=== PATIENT | female | born 1940 | race Caucasian/White ===

== ENCOUNTER → 2018-06-08 | Outpatient (CLI) | payer MEDICARE, BC ==
[2018-06-08 15:51] LABS: HCT 43.6 % (34.0-46.0); HGB 14.3 gm/dL (11.4-16.0); MCH 30.5 pg (25.0-35.0); MCHC 32.7 g/dL (31.0-37.0); MCV 93.3 fL (80.0-100.0); Platelet Count 233 k/uL (150-450); RBC 4.67 m/uL (3.80-5.40); RDW 13.7 % (11.5-15.5); WBC 7.1 k/uL (3.8-10.6)
[2018-06-08 16:08] LABS: Potassium 4.4 mmol/L (3.5-5.1)
== END | disposition home or self-care (01) ==
LOC: LABPAT 15:08
PROVIDERS: ATTEND Internal Medicine Cardiovascular Disease
DX: Z01.812 Encounter for preprocedural laboratory examination (principal); I10 Essential (primary) hypertension; R94.39 Abnormal result of other cardiovascular function study
CPT/HCPCS: 36415; 80051; 82565; 84520; 85027

== ENCOUNTER → 2018-06-15 | Day surgery (SDC) | payer MEDICARE, BC ==
[2018-06-08 10:48] VITALS: BMI 24.7
[~2018-06-15] MED LIST: ALPRAZolam 0.25 MG TAB PO PRN; ALPRAZolam 0.5 MG TAB PO PRN; ASPIRIN 325 MG TAB PO STA; ATORVASTATIN 80 MG TAB PO STA; IOPAMIDOL-370 125ML BTL INJ ONE; LIDOCAINE 2% INJ 20 MG/ML SQ ONE; MIDAZOLAM 2 MG/2 ML VIAL IVP ONE; MIDAZOLAM 2 MG/2 ML VIAL ONE; NITROGLYCERIN SL TABS 0.4 MG TAB SUBLINGUAL PRN; RX INFO: IV CONTRAST WAS GIVEN 1 EACH MISC MISCELLANE PRN; SODIUM CHLORIDE 0.9% 1,000 ML IV SCH; SODIUM CHLORIDE 0.9% 1,000 ML in EMPTY BAG 1 BAG IV ONE
[2018-06-15 06:37] VITALS: PULSE 60; RESP 20; TEMP 98.1
--- NOTE | 2018-06-15 09:44 | CC ---
CARDIAC CATHETERIZATION REPORT Ness is a 78-year-old lady with history of coronary artery disease, status post prior angioplasty of right coronary artery, who had an episode of chest pain, underwent stress test that showed ischemia involving the inferior wall due to which she was advised to undergo cardiac catheterization. She sees Dr. Jacques, who is her primary radiagraph operator, who asked me to perform this procedure for him. Patient has been explained of risks, benefits and alternatives, understood and accepted. She has renal insufficiency with a creatinine of 1.3. Her contrast threshold is 120 mL. PROCEDURE NOTE: After obtaining informed consent, left heart catheterization and coronary angiogram were performed via the right femoral artery using standard Crystal catheters. Patient tolerated the procedure well without any obvious immediate complications. Patient received moderate conscious sedation and total sedation time was 15 minutes. FINDINGS: 1. HEMODYNAMICS: Left ventricular end-diastolic pressure is 12-14 mm. There is no significant gradient across the aortic valve. 2. LEFT VENTRICULOGRAM: Left ventriculogram is not performed. 3. ANGIOGRAPHIC DATA: 4. LEFT MAIN CORONARY ARTERY: Left main coronary artery appears calcified but is free of significant stenosis. Divides into left anterior descending coronary artery and circumflex coronary artery. LAD shows a mild atherosclerotic plaque in its proximal portion. LAD and its branches, circumflex coronary artery and its branches are free of significant stenosis. Right coronary artery is a large dominant vessel. The previously stented segment in the mid RCA appears patent. The ostial portion of the right coronary artery shows a 70% to 80% stenosis. CONCLUSION: 1. Ostial stenosis involving right coronary artery. 2. Renal insufficiency. PLAN: I reviewed angiographic data with Dr. Calvo, the on-call asset protection agent who will perform angioplasty of the ostium of the right coronary artery, but he is going to bring the patient back next week and do it so that we do not give her too much contrast and increase the risk of renal insufficiency on her. These issues have been discussed with the patient. She understands and is in agreement with the plan. The right coronary artery was engaged using a israel catheter and patient will continue current optimal medical therapy including aspirin, nitrates, Lipitor and Toprol-XL. Patient will be hydrated for the next 6 hours. Patient underwent an Angio-Seal for hemostasis. MMODL / IJN: [id number] /
[2018-06-15 16:34] VITALS: BP 145/64
== END | disposition home or self-care (01) ==
LOC: CATHCVL 06:03
PROVIDERS: ATTEND Internal Medicine Cardiovascular Disease
DX: I25.10 Atherosclerotic heart disease of native coronary artery without angina pectoris (principal); I10 Essential (primary) hypertension; N28.9 Disorder of kidney and ureter, unspecified; Z79.899 Other long term (current) drug therapy; Z95.5 Presence of coronary angioplasty implant and graft
CPT/HCPCS: 93458; C1760; C1894; C1769; J2001; J2250; Q9967

== ENCOUNTER 2018-06-19 07:39 | Day surgery (SDC) | payer MEDICARE, BC ==
[2018-06-16 08:42] VITALS: BMI 24.7
[~2018-06-19 07:39] MED LIST changes: -ALPRAZolam 0.25 MG TAB PO PRN; -ALPRAZolam 0.5 MG TAB PO PRN; +ASPIRIN 325 MG TAB PO ONE; -ASPIRIN 325 MG TAB PO STA; +ATORVASTATIN 80 MG TAB PO ONE; -ATORVASTATIN 80 MG TAB PO STA; -IOPAMIDOL-370 125ML BTL INJ ONE; -LIDOCAINE 2% INJ 20 MG/ML SQ ONE; -MIDAZOLAM 2 MG/2 ML VIAL IVP ONE; -MIDAZOLAM 2 MG/2 ML VIAL ONE; -NITROGLYCERIN SL TABS 0.4 MG TAB SUBLINGUAL PRN; -RX INFO: IV CONTRAST WAS GIVEN 1 EACH MISC MISCELLANE PRN; -SODIUM CHLORIDE 0.9% 1,000 ML IV SCH; -SODIUM CHLORIDE 0.9% 1,000 ML in EMPTY BAG 1 BAG IV ONE
[2018-06-19] MEDS: SODIUM CHLORIDE 0.9% 1,000 ML in EMPTY BAG 1 BAG IV ONE ×2 (08:25→08:26)
[2018-06-19 08:38] VITALS: RESP 18
[2018-06-19] MEDS ORDERED: MIDAZOLAM 2 MG/2 ML VIAL ONE (11:41)
[2018-06-19] MEDS ORDERED: LIDOCAINE 1% INJ 10MG/ML (20 ML MDV) ONE (11:41)
[2018-06-19] MEDS ORDERED: VERAPAMIL 2.5 MG/ML 2 ML AMP ONE (11:47)
[2018-06-19] MEDS ORDERED: HEPARIN SODIUM 1,000 UN/ML (10ML VL) ONE (12:02)
[2018-06-19] MEDS ORDERED: MIDAZOLAM 2 MG/2 ML VIAL IVP ONE ×2 (12:41→12:55)
[2018-06-19] MEDS ORDERED: LIDOCAINE 1% INJ 10MG/ML (20 ML MDV) SQ ONE (12:43)
[2018-06-19] MEDS ORDERED: BIVALIRUDIN BOLUS 250 MG/50 ML IV ONE (12:45)
[2018-06-19] MEDS ORDERED: VERAPAMIL SYRINGE (5 MG/10 ML) INTRAARTER ONE ×2 (12:46→13:23)
[2018-06-19] MEDS ORDERED: VERAPAMIL SYRINGE (5 MG/10 ML) IVP ONE (12:46)
[2018-06-19] MEDS ORDERED: BIVALIRUDIN 250 MG in SODIUM CHLORIDE 0.9% 50 ML IV ONE (12:47)
[2018-06-19] MEDS ORDERED: CLOPIDOGREL 75 MG TAB ONE (13:07)
[2018-06-19] MEDS ORDERED: CLOPIDOGREL 75 MG TAB PO ONE (13:10)
[2018-06-19] MEDS ORDERED: IOPAMIDOL-370 125ML BTL INJ ONE (13:23)
[2018-06-19] MEDS ORDERED: RX INFO: IV CONTRAST WAS GIVEN 1 EACH MISC MISCELLANE PRN (13:29)
[2018-06-19] MEDS ORDERED: ATROPINE SULFATE 0.1 MG/ML 10ML SYRINGE IV PRN (13:29)
[2018-06-19] MEDS ORDERED: ZOLPIDEM 5 MG TAB PO PRN (13:29)
[2018-06-19] MEDS ORDERED: NITROGLYCERIN SL TABS 0.4 MG TAB SUBLINGUAL PRN (13:29)
[2018-06-19] MEDS ORDERED: MAG HYDROX/AL HYDROX/SIMETH 30 ML CUP PO PRN (13:29)
[2018-06-19] MEDS ORDERED: SODIUM CHLORIDE 0.9% 1,000 ML IV SCH (13:30)
[2018-06-19] MEDS ORDERED: METOPROLOL SUCCINATE (ER) 25 MG TAB.ER.24H PO SCH (14:55)
--- NOTE | 2018-06-19 15:06 | LTR ---
DATE OF SERVICE: June 19, 2018. Dear Dr. Marrero: Ms. Ness Ozuna underwent successful stenting of the right coronary artery with good angiographic results and without any complication. Thank you for allowing us to participate in her in her care and please do not hesitate to call if you have any question or concerns. Sincerely, MMODL / IJN: [id number] /
--- NOTE | 2018-06-19 16:21 | PTCA ---
PERCUTANEOUSTRANS CORORONARY ANGIOGRAPHY DATE OF SERVICE: 06/19/2018 PERFORMING PHYSICIAN: Remington Calvo MD, field service technician PROCEDURE PERFORMED: Successful stenting of the ostial right coronary artery using a 3.0 x 15 mm Xience drug- eluting stent which was post dilated using a 3.5 mm noncompliant balloon with excellent angiographic results and reduction of stenosis from 99% to 0%. INDICATION: This is a pleasant 78-year-old female patient with known history of coronary artery disease and prior stenting of the RCA who sees Dr. Jacques in the office as an outpatient. She was experiencing chest discomfort. She underwent heart catheterization by Dr. Alcocer that revealed critical disease involving the ostial RCA. Because of that, she was brought today to undergo stenting of the RCA. APPROACH: Right radial artery. COMPLICATIONS: None. LEVEL OF SEDATION: Moderate sedation length 42 minutes. PROCEDURE DESCRIPTION: After obtaining informed consent, the patient was brought to the cardiac medical laboratory technicians. The right radial artery was cannulated using micropuncture technique. The micropuncture wire passed easily. Then I placed a 6-Kyrgyz sheath in the right radial artery. After that I gave the patient 2 mg of verapamil IA and anticoagulation with Angiomax was initiated IV. After that I attempted to engage the RCA using J3.5, JR4, Rip right, as well as multipurpose and also an AR1, and I was unable. Finally I was able to engage the right using using the XB right. The RCA was wired using a Whisper wire as well as a wire. After that I did balloon angioplasty using a 2.5 x 12 mm balloon before I deployed a 3.0 x 15 mm Xience RANCHO where the stent was positioned under fluoroscopic guidance and deployed under 14 atmospheres for 20 seconds. I post dilated the stent using a 3.5 mm NC balloon. The following angiogram showed excellent angiographic results without any perforation or dissection. POST-PROCEDURE MANAGEMENT: 1. Dual anti-platelet therapy. 2. Risk factor modifications. 3. Follow up with the patient. MMODL / IJN: [id number] /
[2018-06-19 22:07] VITALS: TEMP 97.8
[2018-06-20 05:28] VITALS: BP 119/70; PULSE 64
[2018-06-20] MEDS ORDERED: LEVOTHYROXINE 100 MCG TAB PO SCH (06:30)
--- NOTE | 2018-06-20 07:16 | DS ---
DISCHARGE SUMMARY ADMISSION DATE: 06/19/2018 DISCHARGE DATE: 06/20/2018 BRIEF HISTORY: This is a pleasant 78-year-old female patient with hypertension, dyslipidemia, and known coronary artery disease and prior stenting of the mid RCA, who was experiencing chest discomfort concerning for angina. She underwent heart catheterization and that revealed severe disease involving the ostial right coronary artery. The procedure was performed last week. Because of her chronic kidney disease and GFR of about 40, the patient was brought yesterday and underwent successful stenting of the ostial RCA using drug-eluting stent from a right radial approach. On follow up with her today, she is asymptomatic from the cardiovascular standpoint of view. The right radial access site is soft and nontender with a good pulse. The patient is going to be discharged home on dual antiplatelet therapy and statin and she is going to be followed up in the office in a week. MMYANI / YORDY: [id number] /
[2018-06-20 07:20] LABS: HGB 14.8 gm/dL (11.4-16.0); MCHC 32.8 g/dL (31.0-37.0); MCV 94.3 fL (80.0-100.0); Mean Platelet Volume 6.7; Platelet Count 230 k/uL (150-450); RBC 4.77 m/uL (3.80-5.40); RDW 13.5 % (11.5-15.5); WBC 6.1 k/uL (3.8-10.6)
[2018-06-20] MEDS ORDERED: ASPIRIN 81 MG PO SCH (09:00)
[2018-06-20] MEDS ORDERED: ATORVASTATIN 20 MG TAB PO SCH (09:00)
[2018-06-20] MEDS ORDERED: METOPROLOL SUCCINATE (ER) 25 MG TAB.ER.24H PO SCH ×2 (09:00)
[2018-06-20] MEDS ORDERED: ISOSORBIDE MONONITRATE ER 15 MG TAB PO SCH (12:00)
[2018-06-20] MEDS ORDERED: CALCIUM CARB-VIT D 500MG-200UN 1 EACH TAB PO SCH (12:00)
[2018-06-20] MEDS ORDERED: CLOPIDOGREL 75 MG TAB PO SCH (12:00)
[2018-06-20] MEDS ORDERED: MULTIVITAMINS, THERA 1 EACH TAB PO SCH (12:00)
== END 2018-06-20 09:11 ==
LOC: CATHCVL 07:39 → 6SEL 13:22 → CATHCVL 06-20 09:11
PROVIDERS: ATTEND Internal Medicine Interventional Cardiology
DX: I25.10 Atherosclerotic heart disease of native coronary artery without angina pectoris (principal); I12.9 Hypertensive chronic kidney disease with stage 1 through stage 4 chronic kidney disease, or unspecified chronic kidney disease; N18.9 Chronic kidney disease, unspecified; R94.39 Abnormal result of other cardiovascular function study; E78.5 Hyperlipidemia, unspecified; Z95.5 Presence of coronary angioplasty implant and graft; F17.210 Nicotine dependence, cigarettes, uncomplicated; Z79.82 Long term (current) use of aspirin; Z79.890 Hormone replacement therapy; Z79.899 Other long term (current) drug therapy
CPT/HCPCS: 82565; 85027; C9600; C1769 ×2; C1887 ×5; C1725 ×2; C1874; C1894; J2250; J2001; J0583; Q9967

== ENCOUNTER → 2018-10-02 | Outpatient (CLI) | payer MEDICARE, BC ==
[2018-10-02 17:14] LABS: Albumin 4.1 g/dL (3.80-4.90); Albumin/Globulin Ratio 2.05 (1.20-2.10); Anion Gap 3.2 mmol/L (4.00-12.00); Calcium 9.5 mg/dL (8.7-10.3); Carbon Dioxide 26.8 mmol/L (21.6-31.8); Potassium 4.2 mmol/L (3.5-5.5); Total Bilirubin 0.4 mg/dL (0.3-1.2); Total Protein 6.1 g/dL (6.2-8.2)
== END ==
LOC: LABWHC1 08:33
PROVIDERS: ATTEND Internal Medicine Clinical Cardiac Electrophysiology
DX: I25.10 Atherosclerotic heart disease of native coronary artery without angina pectoris (principal); I10 Essential (primary) hypertension; Z95.5 Presence of coronary angioplasty implant and graft
CPT/HCPCS: 36415; 80053; 80061

== ENCOUNTER 2019-09-23 09:18 | Observation (INO) | payer MEDICARE, BC ==
[2019-09-23] MEDS ORDERED: SODIUM CHLORIDE 0.9% 1,000 ML IV STA (09:46)
--- NOTE | 2019-09-23 09:49 | ED ---
General Adult HPI - General Chief complaint: Recheck/Abnormal Lab/Rx Stated complaint: High BP Time Seen by Provider: 09/23/19 09:31 Source: patient, RN notes reviewed Mode of arrival: ambulatory Limitations: no limitations - History of Present Illness Initial comments: Patient is a pleasant 79-year-old female presenting to the emergency department lightheadedness. Symptoms have been occurring over the past few days. Patient decided to have her blood pressure checked this morning and was found to be high. Patient does not normally have any blood pressure issues. Patient does admit to having mild burning in her chest yesterday as well as today. No isolated area of weakness or confusion. Patient does have history of burning in her chest previously associated with heart attack however was much more significant at that point. - Related Data Home Medications Medication Instructions Recorded Confirmed Aspirin 81 mg PO DAILY 06/08/18 09/23/19 Atorvastatin Calcium [Lipitor] 20 mg PO DAILY@0800 06/08/18 09/23/19 [place]/D3/Mag11/Zinc/Staffing Director/Reji/Bor 1 tab PO DAILY@1200 06/08/18 09/23/19 [Caltrate 600+D Plus Tablet] Levothyroxine Sodium [Synthroid] 100 mcg PO DAILY@0700 06/08/18 09/23/19 Multivit with Calcium,Iron,Min 1 tab PO DAILY@1200 06/08/18 09/23/19 [Women's Multivitamin] Allergies Allergy/AdvReac Type Severity Reaction Status Date / Time No Known Allergies Allergy Verified 09/23/19 11:13 Review of Systems ROS Statement: Those systems with pertinent positive or pertinent negative responses have been documented in the HPI. ROS Other: All systems not noted in ROS Statement are negative. Constitutional: Denies: fever Eyes: Denies: eye pain ENT: Denies: ear pain Respiratory: Denies: cough, dyspnea Cardiovascular: Reports: as per HPI Endocrine: Denies: fatigue Gastrointestinal: Denies: abdominal pain Genitourinary: Denies: dysuria Musculoskeletal: Denies: back pain Skin: Denies: rash Neurological: Denies: headache, weakness, confusion Past Medical History Past Medical History: Chest Pain / Angina, COPD, Hyperlipidemia, Hypertension, Myocardial Infarction ([place]), Renal Disease Additional Past Medical History / Comment(s): HEART CATH 06/15/18 - STATES PUNTURE SITE HAS NO SWELLING OR BLEEDING., RENAL INSUFFICIENCY., SEE CARDIOLOGY H & P. Last Myocardial Infarction Date:: 2004 History of Any Multi-Drug Resistant Organisms: None Reported Past Surgical History: Breast Surgery, Heart Catheterization With Stent Additional Past Surgical History / Comment(s): heart stent x1,lump removed left breast Past Anesthesia/Blood Transfusion Reactions: No Reported Reaction Additional Past Anesthesia/Blood Transfusion Reaction / Comment(s): no hx blood transfusion Date of Last Stent Placement:: 2004 Past Psychological History: Anxiety Smoking Status: Current every day smoker Past Alcohol Use History: Occasional Past Drug Use History: None Reported - Past Family History Sister(s) Family Medical History: Cancer Brother(s) Family Medical History: Cancer General Exam Limitations: no limitations General appearance: alert, in no apparent distress Head exam: Present: normocephalic Eye exam: Present: normal appearance, PERRL ENT exam: Present: normal oropharynx Neck exam: Present: normal inspection Respiratory exam: Present: normal lung sounds bilaterally Cardiovascular Exam: Present: regular rate, normal rhythm Expanded Peripheral pulses: 2+: Radial (R), Radial (L), Dorsalis Pedis (R), Dorsalis Pedis (L) GI/Abdominal exam: Present: soft. Absent: tenderness Extremities exam: Present: normal inspection. Absent: pedal edema, calf tenderness Neurological exam: Present: alert, oriented X3, CN II-XII intact. Absent: motor sensory deficit Psychiatric exam: Present: normal affect, normal mood Skin exam: Present: normal color Course Vital Signs 09/23/19 09/23/19 09:23 10:45 Temperature 98 F Pulse Rate 89 86 Respiratory 18 18 Rate Blood Pressure 196/90 138/61 O2 Sat by Pulse 97 98 Oximetry EKG Findings - EKG Comments: EKG Findings:: Normal sinus rhythm 67. AK 152. QRS 74. QT 390. QTC 412. Normal axis. Normal QRS. No acute ST change. Medical Decision Making - Medical Decision Making Patient reevaluated and resting comfortably in bed. Patient and family updated on results and plan. Case was discussed in detail with Dr. Powell, who will admit covering for Dr. Marrero - Lab Data Result diagrams: 09/23/19 09:50 09/23/19 09:50 Lab Results 09/23/19 09/23/19 09/23/19 Range/Units 09:50 09:50 09:50 WBC 7.0 (3.8-10.6) k/uL RBC 4.74 (3.80-5.40) m/uL Hgb 15.2 (11.4-16.0) gm/dL Hct 45.2 (34.0-46.0) % MCV 95.5 (80.0-100.0) fL MCH 32.1 (25.0-35.0) pg MCHC 33.6 (31.0-37.0) g/dL RDW 13.4 (11.5-15.5) % Plt Count 228 (150-450) k/uL Neutrophils % 72 % Lymphocytes % 18 % Monocytes % 5 % Eosinophils % 3 % Basophils % 1 % Neutrophils # 5.0 (1.3-7.7) k/uL Lymphocytes # 1.3 (1.0-4.8) k/uL Monocytes # 0.3 (0-1.0) k/uL Eosinophils # 0.2 (0-0.7) k/uL Basophils # 0.1 (0-0.2) k/uL PT 9.6 (9.0-12.0) sec INR 0.9 (<1.2) APTT 22.7 (22.0-30.0) sec Sodium 139 (137-145) mmol/L Potassium 4.5 (3.5-5.1) mmol/L Chloride 106 (98-107) mmol/L Carbon Dioxide 26 (22-30) mmol/L Anion Gap 7 mmol/L BUN 27 H (7-17) mg/dL Creatinine 1.34 H (0.52-1.04) mg/dL Est GFR (CKD-EPI)AfAm 44 (>60 ml/min/1.73 sqM) Est GFR (CKD-EPI)NonAf 38 (>60 ml/min/1.73 sqM) Glucose 118 H (74-99) mg/dL Calcium 9.5 (8.4-10.2) mg/dL Magnesium 2.1 (1.6-2.3) mg/dL Total Bilirubin 0.5 (0.2-1.3) mg/dL AST 30 (14-36) U/L ALT 30 (9-52) U/L Alkaline Phosphatase 97 (38-126) U/L Troponin I (0.000-0.034) ng/mL Total Protein 7.1 (6.3-8.2) g/dL Albumin 4.1 (3.5-5.0) g/dL 09/23/19 Range/Units 09:50 WBC (3.8-10.6) k/uL RBC (3.80-5.40) m/uL Hgb (11.4-16.0) gm/dL Hct (34.0-46.0) % MCV (80.0-100.0) fL MCH (25.0-35.0) pg MCHC (31.0-37.0) g/dL RDW (11.5-15.5) % Plt Count (150-450) k/uL Neutrophils % % Lymphocytes % % Monocytes % % Eosinophils % % Basophils % % Neutrophils # (1.3-7.7) k/uL Lymphocytes # (1.0-4.8) k/uL Monocytes # (0-1.0) k/uL Eosinophils # (0-0.7) k/uL Basophils # (0-0.2) k/uL PT (9.0-12.0) sec INR (<1.2) APTT (22.0-30.0) sec Sodium (137-145) mmol/L Potassium (3.5-5.1) mmol/L Chloride (98-107) mmol/L Carbon Dioxide (22-30) mmol/L Anion Gap mmol/L BUN (7-17) mg/dL Creatinine (0.52-1.04) mg/dL Est GFR (CKD-EPI)AfAm (>60 ml/min/1.73 sqM) Est GFR (CKD-EPI)NonAf (>60 ml/min/1.73 sqM) Glucose (74-99) mg/dL Calcium (8.4-10.2) mg/dL Magnesium (1.6-2.3) mg/dL Total Bilirubin (0.2-1.3) mg/dL AST (14-36) U/L ALT (9-52) U/L Alkaline Phosphatase (38-126) U/L Troponin I <0.012 (0.000-0.034) ng/mL Total Protein (6.3-8.2) g/dL Albumin (3.5-5.0) g/dL - Radiology Data Radiology results: image reviewed (Chest x-ray: Correlate for COPD.) Disposition Clinical Impression: Chest pain Disposition: ADMITTED IP TO THIS HOSP Is patient prescribed a controlled substance at d/c from ED?: No Referrals: Bessy Grimes MD [Primary Care Provider] - 1-2 days Decision Time: 11:23
[2019-09-23 10:07] LABS: Basophils # (A) 0.1 k/uL (0-0.2); Basophils % (A) 1 %; Eosinophils # (A) 0.2 k/uL (0-0.7); Eosinophils % (A) 3 %; HCT 45.2 % (34.0-46.0); HGB 15.2 gm/dL (11.4-16.0); Lymphocytes # (A) 1.3 k/uL (1.0-4.8); Lymphocytes % (A) 18 %; MCH 32.1 pg (25.0-35.0); MCHC 33.6 g/dL (31.0-37.0); MCV 95.5 fL (80.0-100.0); Mean Platelet Volume 6.7; Monocytes # (A) 0.3 k/uL (0-1.0); Monocytes % (A) 5 %; Neutrophils % (A) 72 %; Platelet Count 228 k/uL (150-450); RBC 4.74 m/uL (3.80-5.40); RDW 13.4 % (11.5-15.5)
[2019-09-23 10:19] LABS: Albumin 4.1 g/dL (3.5-5.0); Calcium 9.5 mg/dL (8.4-10.2); INR 0.9 (<1.2); Magnesium 2.1 mg/dL (1.6-2.3); Potassium 4.5 mmol/L (3.5-5.1); Total Bilirubin 0.5 mg/dL (0.2-1.3); Total Protein 7.1 g/dL (6.3-8.2)
[2019-09-23 10:20] LABS: Partial Thromboplastin Time 22.7 sec (22.0-30.0); Prothrombin Time 9.6 sec (9.0-12.0)
--- NOTE | 2019-09-23 10:36 | XR ---
EXAMINATION TYPE: XR chest 2V DATE OF EXAM: 09/23/2019 HISTORY: Chest Pain. REFERENCE: NONE. FINDINGS: The lungs are overinflated. The lungs are clear. Pleural space are clear. The heart is not enlarged. IMPRESSION: PLEASE CORRELATE FOR COPD.
[2019-09-23] MEDS ORDERED: NITROGLYCERIN SL TABS 0.4 MG TAB SUBLINGUAL PRN (11:23)
[2019-09-23] MEDS ORDERED: ASPIRIN 81 MG PO STA (11:23)
[2019-09-23] MEDS: NITROGLYCERIN OINT 1 INCH/GM PACKET TOPICAL SCH ×2 (12:05→17:09)
[2019-09-23 15:12] VITALS: BMI 25.3
--- NOTE | 2019-09-23 22:27 | P.HPIM ---
History of Present Illness H&P Date: 09/23/19 Chief Complaint: Chest pain Ms. Ozuna is a 79-year-old female with a past medical history of hypertension, coronary artery disease status post stenting, hyperlipidemia, CKD coming to the hospital with a chief complaint of chest discomfort. Patient states that it is not chest pain but chest heaviness that she feels. Patient has been having this for the past few days. And when she checked her blood pressure it was high. Patient also felt lightheaded when she had the symptoms and so came into the hospital for further evaluation. She states that for the past 2 to 3 weeks she has been having cough and has been taking antibiotics with some relief. She denies having any fevers chills or rigors. Patient denies having any lower extremity swelling. No orthopnea or PND. She denies having any syncopal episodes. No headaches, blurring of vision or speech abnormalities. She mentions that she felt the same way when she had heart attack in the past. Patient has history of smoking she smokes 1 pack a day. In the emergency room patient had a chest x-ray showing COPD and an EKG with normal sinus rhythm. She also had troponins checked, level is less than 0.012. Patient has CKD her creatinine is 1.34. Patient has been admitted for further evaluation and management. Review of Systems REVIEW OF SYSTEMS: PSYCH: no anxiety or depression NEURO:No c/o weakness of the extremties, No facial droop, No speech abnor malities. VASCULAR: Peripheral nervous system within the normal limits no edema HEMATOLOGIC: No history of easy bleeding and bruising . No recent infections . RESPIRATORY: + cough, No SOB. IMMUNE: No infections INTEGUMENT: no rashes OPHTHALMOLOGIC: No blurry vision and no eye discharge : No dysuria or hematuria PROOF CLERK: No bleeding PV CARDIAC: No chest pain paroxysmal nocturnal dyspnea MUSCULOSKELETAL : No Aches or pains in the joints or muscles. GI: No abdominal pain, Nausea or vomiting. No constipation or diarrhea. Past Medical History Past Medical History: Chest Pain / Angina, COPD, Hyperlipidemia, Hypertension, Myocardial Infarction ([place]), Renal Disease, Thyroid Disorder Additional Past Medical History / Comment(s): HEART CATH 06/15/18 - STATES PUNTURE SITE HAS NO SWELLING OR BLEEDING., RENAL INSUFFICIENCY., SEE CARDIOLOGY H & P. Last Myocardial Infarction Date:: 2004 History of Any Multi-Drug Resistant Organisms: None Reported Past Surgical History: Breast Surgery, Heart Catheterization With Stent Additional Past Surgical History / Comment(s): heart stent x1,lump removed left breast Past Anesthesia/Blood Transfusion Reactions: No Reported Reaction Additional Past Anesthesia/Blood Transfusion Reaction / Comment(s): no hx blood transfusion Date of Last Stent Placement:: 2004 Past Psychological History: Anxiety Smoking Status: Current some day smoker Past Alcohol Use History: Occasional Additional Past Alcohol Use History / Comment(s): started smoking as a teenager,1ppd Past Drug Use History: None Reported - Past Family History Sister(s) Family Medical History: Cancer Brother(s) Family Medical History: Cancer Medications and Allergies Home Medications Medication Instructions Recorded Confirmed Type Aspirin 81 mg PO DAILY 06/08/18 09/23/19 History Atorvastatin Calcium [Lipitor] 20 mg PO DAILY@0800 06/08/18 09/23/19 History [place]/D3/Mag11/Zinc/Greenskeeper/Reji/Bor 1 tab PO DAILY@1200 06/08/18 09/23/19 History [Caltrate 600+D Plus Tablet] Levothyroxine Sodium [Synthroid] 100 mcg PO DAILY@0700 06/08/18 09/23/19 History Multivit with Calcium,Iron,Min 1 tab PO DAILY@1200 06/08/18 09/23/19 History [Women's Multivitamin] Allergies Allergy/AdvReac Type Severity Reaction Status Date / Time No Known Allergies Allergy Verified 09/23/19 11:13 Physical Exam Vitals: Vital Signs Temp Pulse Pulse Resp BP BP Pulse Ox 09/23/19 16:00 69 16 96 09/23/19 13:15 97.1 F L 79 16 135/64 96 09/23/19 12:14 82 16 157/71 98 09/23/19 10:45 86 18 138/61 98 09/23/19 09:23 98 F 89 18 196/90 97 Intake and Output 09/23/19 09/23/19 09/23/19 06:59 14:59 22:59 Intake Total 240 Balance 240 Intake: Oral 240 Other: # Voids 2 # Bowel Movements 1 Weight 64.864 kg GEN. APPEARANCE: alert, in no apparent distress HEENT - no pallor, no icterus , No JVD. RESPIRATORY EXAM: Decreased BS in all lung feliz. Few scattered ronchi. CARDIOVASCULAR EXAM: regular rate, normal rhythm, normal heart sounds. GI/ABDOMINAL EXAM: soft, normal bowel sounds. no tenderness, guarding, rebound or rigidity EXTREMITIES EXAM: no pedal edema NEUROLOGICAL EXAM: alert, oriented X3, no focal deficit PSYCHIATRIC EXAM: normal affect, normal mood SKIN EXAM: warm, dry, intact, normal color. Results CBC & Chem 7: 09/23/19 09:50 09/23/19 09:50 Labs: Abnormal Lab Results - Last 24 Hours (Table) 09/23/19 Range/Units 09:50 BUN 27 H (7-17) mg/dL Creatinine 1.34 H (0.52-1.04) mg/dL Glucose 118 H (74-99) mg/dL Thrombosis Risk Factor Assmnt - Choose All That Apply Any of the Below Risk Factors Present?: Yes Each Factor Represents 1 point: Obesity (BMI >25) Other Risk Factors: Yes Each Risk Factor Represents 2 Points: Age 61-74 years Thrombosis Risk Factor Assessment Total Risk Factor Score: 3 Thrombosis Risk Factor Assessment Level: Moderate Risk Assessment and Plan Assessment: ASSESSMENT Chest pain COPD CKD stage 3 Hypertension Hyperlipidemia Coronary artery disease status post stenting Hypothyroidism Left breast lump removal History of anxiety Nicotine dependence PLAN: Patient complaining of chest heaviness and has significant history of coronary artery disease and currently smoking, admitted for ACS rule out. Will get serial troponins and EKGs. Cardiology has been consulted, she might need cardiac cath. Patient has been restarted on all her home medications. Further recommendations to follow depending on the progress of the patient.
[2019-09-23 23:10] LABS: Cholesterol 174 mg/dL (<200); HDL Cholesterol 47 mg/dL (40-60); LDL Cholesterol,Calculated 95 mg/dL (0-99); Triglycerides 158 mg/dL (<150)
[2019-09-24 05:10] LABS: Basophils % (A) 0 %; Eosinophils # (A) 0.1 k/uL (0-0.7); Eosinophils % (A) 2 %; HCT 39.2 % (34.0-46.0); HGB 13.5 gm/dL (11.4-16.0); Lymphocytes # (A) 1.6 k/uL (1.0-4.8); Lymphocytes % (A) 23 %; MCH 32.6 pg (25.0-35.0); MCHC 34.5 g/dL (31.0-37.0); MCV 94.5 fL (80.0-100.0); Mean Platelet Volume 6.1; Monocytes # (A) 0.3 k/uL (0-1.0); Monocytes % (A) 5 %; Neutrophils # (A) 4.7 k/uL (1.3-7.7); Neutrophils % (A) 69 %; Platelet Count 204 k/uL (150-450); RBC 4.15 m/uL (3.80-5.40); RDW 13.3 % (11.5-15.5); WBC 6.8 k/uL (3.8-10.6)
[2019-09-24 05:26] LABS: Calcium 8.5 mg/dL (8.4-10.2); Potassium 4.2 mmol/L (3.5-5.1)
[2019-09-24] MEDS ORDERED: LEVOTHYROXINE 100 MCG TAB PO SCH (06:30)
[2019-09-24] MEDS: NITROGLYCERIN OINT 1 INCH/GM PACKET TOPICAL SCH ×3 (06:34→13:16)
[2019-09-24] MEDS ORDERED: ATORVASTATIN 20 MG TAB PO SCH (08:00)
[2019-09-24] MEDS ORDERED: ASPIRIN 81 MG PO SCH (09:00)
[2019-09-24] MEDS ORDERED: ENOXAPARIN 40 MG/0.4 ML SYRINGE SQ SCH (09:00)
[2019-09-24] MEDS ORDERED: ASPIRIN 325 MG TAB PO SCH (09:00)
[2019-09-24 09:21] VITALS: RESP 20; TEMP 97.3
--- NOTE | 2019-09-24 13:12 | P.CRDCN ---
History of Present Illness Consult date: 09/24/19 Requesting physician: Ching Corbett Consult reason: chest pain Chief complaint: Lightheadedness, chest uneasiness History of present illness: This is a 79-year-old female who follows regularly with Dr. Jacques in the office. She has a known history of coronary artery disease with prior stent placement, her RCA was initially stented in 2004, in 2018 she had proximal RCA stenting performed by Dr. Jones. Patient also has history of hypertension, hyperlipidemia, intermittent dizzy spells with lightheadedness. As well as a nicotine dependence. She presents to the hospital on this occasion with symptoms primarily of lightheadedness, she states that she also had an uncomfortable feeling in her chest with no chest pain. She had several episodes over the weekend, initiated by lightheadedness with this similar feeling in the chest. She states that she would have something to eat and the symptoms seemed to subside. She is also recently had a upper respiratory infection and was treated as an outpatient with antibiotics, had a significant cough, and was uncomfortable in her rib area with coughing at that time. The time of my examination this morning she is free of any chest pain, and denies any dizziness. Patient also states that recently over the past couple of months she has had a stress test performed in the office which was reported to her to be normal. Blood pressure 140/80 with a heart rate in the 70s, 92% on room air. White blood cell count 6.8, hemoglobin 13.5, platelet count 204. D-dimer 0.41. Sodium 138, potassium 4.2, BUN 20, creatinine 1.1. Troponins are negative 3. Chest x-ray on presentation here showed COPD. Her EKG showed a normal sinus rhythm with no acute changes. Past Medical History Past Medical History: Chest Pain / Angina, COPD, Hyperlipidemia, Hypertension, Myocardial Infarction (IA), Renal Disease, Thyroid Disorder Additional Past Medical History / Comment(s): HEART CATH 06/15/18 - STATES PUNTURE SITE HAS NO SWELLING OR BLEEDING., RENAL INSUFFICIENCY., SEE CARDIOLOGY H & P. Last Myocardial Infarction Date:: 2004 History of Any Multi-Drug Resistant Organisms: None Reported Past Surgical History: Breast Surgery, Heart Catheterization With Stent Additional Past Surgical History / Comment(s): heart stent x1,lump removed left breast Past Anesthesia/Blood Transfusion Reactions: No Reported Reaction Additional Past Anesthesia/Blood Transfusion Reaction / Comment(s): no hx blood transfusion Date of Last Stent Placement:: 2004 Past Psychological History: Anxiety Smoking Status: Current some day smoker Past Alcohol Use History: Occasional Additional Past Alcohol Use History / Comment(s): started smoking as a teenager,1ppd Past Drug Use History: None Reported - Past Family History Sister(s) Family Medical History: Cancer Brother(s) Family Medical History: Cancer Medications and Allergies Home Medications Medication Instructions Recorded Confirmed Type Aspirin 81 mg PO DAILY 06/08/18 09/23/19 History Atorvastatin Calcium [Lipitor] 20 mg PO DAILY@0800 06/08/18 09/23/19 History [place]/D3/Mag11/Zinc/Primer Press Operator/Reji/Bor 1 tab PO DAILY@1200 06/08/18 09/23/19 History [Caltrate 600+D Plus Tablet] Levothyroxine Sodium [Synthroid] 100 mcg PO DAILY@0700 06/08/18 09/23/19 History Multivit with Calcium,Iron,Min 1 tab PO DAILY@1200 06/08/18 09/23/19 History [Women's Multivitamin] Allergies Allergy/AdvReac Type Severity Reaction Status Date / Time No Known Allergies Allergy Verified 09/23/19 11:13 Physical Exam Vitals: Vital Signs Temp Pulse Pulse Pulse Pulse Resp BP 09/24/19 08:00 97.3 F L 77 20 09/24/19 07:55 09/24/19 04:00 97.5 F L 71 16 138/66 09/24/19 00:00 77 16 130/67 09/23/19 20:00 97.9 F 72 85 74 74 16 144/65 09/23/19 16:00 69 16 09/23/19 13:15 97.1 F L 79 16 BP BP BP Pulse Ox 09/24/19 08:00 145/81 92 L 09/24/19 07:55 94 L 09/24/19 04:00 92 L 09/24/19 00:00 92 L 09/23/19 20:00 163/85 133/64 92 L 09/23/19 16:00 96 09/23/19 13:15 135/64 96 Intake and Output 09/23/19 09/24/19 09/24/19 22:59 06:59 14:59 Intake Total 480 240 Balance 480 240 Intake: Oral 480 240 Other: # Voids 0 1 3 # Bowel Movements 1 1 Weight 65.7 kg PHYSICAL EXAMINATION: GENERAL: 79-year-old female in no acute distress at HEENT: Head is atraumatic, normocephalic. Pupils equal, round. Sclera anicteric. Conjunctiva are clear. Mucous membranes of the mouth are moist. Neck is supple. There is no elevated jugular venous pressure. No carotid bruit is heard. HEART EXAMINATION: Heart S1, S2 normal. No murmur or gallop heard. CHEST EXAMINATION: Lungs reveal some fine wheezing on expiration. ABDOMEN: Soft, nontender. Bowel sounds are heard. No organomegaly noted. EXTREMITIES: 2+ peripheral pulses with no evidence of peripheral edema and no calf tenderness noted. NEUROLOGIC patient is awake, alert and oriented 3 . . Results 09/24/19 04:55 09/24/19 04:55 Cardiac Enzymes 09/23/19 09/23/19 Range/Units 15:58 21:21 Troponin I <0.012 <0.012 (0.000-0.034) ng/mL Lipids 09/23/19 Range/Units 09:50 Triglycerides 158 H (<150) mg/dL Cholesterol 174 (<200) mg/dL HDL Cholesterol 47 (40-60) mg/dL CBC 09/24/19 Range/Units 04:55 WBC 6.8 (3.8-10.6) k/uL RBC 4.15 (3.80-5.40) m/uL Hgb 13.5 (11.4-16.0) gm/dL Hct 39.2 (34.0-46.0) % Plt Count 204 (150-450) k/uL Comprehensive Metabolic Panel 09/24/19 Range/Units 04:55 Sodium 138 (137-145) mmol/L Potassium 4.2 (3.5-5.1) mmol/L Chloride 110 H (98-107) mmol/L Carbon Dioxide 26 (22-30) mmol/L BUN 20 H (7-17) mg/dL Creatinine 1.16 H (0.52-1.04) mg/dL Glucose 96 (74-99) mg/dL Calcium 8.5 (8.4-10.2) mg/dL Current Medications Generic Name Dose Route Start Last Admin Trade Name Freq PRN Reason Stop Dose Admin Aspirin 81 mg 09/24/19 09:00 09/24/19 08:30 Aspirin PO 81 mg DAILY DICK Administration Atorvastatin Calcium 20 mg 09/24/19 08:00 09/24/19 08:29 Lipitor PO 20 mg DAILY@0800 DICK Administration Enoxaparin Sodium 40 mg 09/24/19 09:00 09/24/19 08:30 Lovenox SQ 40 mg DAILY DICK Administration Levothyroxine Sodium 100 mcg 09/24/19 06:30 09/24/19 06:36 Synthroid PO 100 mcg DAILY@0630 DICK Administration Nitroglycerin 0.4 mg 09/23/19 11:23 Nitrostat SUBLINGUAL Q5M PRN Chest Pain Nitroglycerin 1 inch 09/23/19 12:00 09/24/19 06:36 Nitro-Bid Oint TOPICAL 1 inch Q6HR DICK Administration Intake and Output 09/23/19 09/24/19 09/24/19 22:59 06:59 14:59 Intake Total 480 240 Balance 480 240 Intake: Oral 480 240 Other: # Voids 0 1 3 # Bowel Movements 1 1 Weight 65.7 kg 09/24/19 04:55 09/24/19 04:55 EKG Interpretations (text) EKG shows a normal sinus rhythm with no acute changes. Assessment and Plan Plan: Assessment and plan #1 symptoms of lightheadedness with associated uneasiness in the chest. Troponins were negative 3, EKG showed normal sinus rhythm with no acute changes. Lightheadedness could be secondary to mild dehydration on presentation. #2 known history of coronary artery disease with prior RCA stenting in 2005 and most recently the proximal RCA in 2018 #3 nicotine dependence #4 hypertension #5 hyperlipidemia #6 mild renal insufficiency likely secondary to dehydration, creatinine 1.1 this morning. Plan Patient had a recent stress test performed in the office, if this is negative then from cardiology's perspective she should be able to be discharged home today. We will recommend a follow-up appointment with Dr. Jacques in the office post discharge. DNP note has been reviewed, I agree with a documented findings and plan of care. Patient was seen and examined.
[2019-09-24 13:41] VITALS: BP 169/73; PULSE 69
--- NOTE | 2019-09-24 14:59 | P.DS ---
Providers Date of admission: 09/23/19 11:23 Expected date of discharge: 09/24/19 Attending physician: Ching Corbett Consults: 09/23/19 11:23 Consult Physician Urgent Consulting Provider: Washington Langston Consult Reason/Comments: cp Do you want consulting provider notified?: Yes Primary care physician: [facility] Course: Ms. Ozuna is a 79-year-old female with a past medical history of hypertension, coronary artery disease status post stenting, hyperlipidemia, CKD coming to the hospital with a chief complaint of chest discomfort. Patient states that it is not chest pain but chest heaviness that she feels. Patient has been having this for the past few days. And when she checked her blood pressure it was high. Patient also felt lightheaded when she had the symptoms and so came into the hospital for further evaluation. She states that for the past 2 to 3 weeks she has been having cough and has been taking antibiotics with some relief. She denies having any fevers chills or rigors. Patient denies having any lower extremity swelling. No orthopnea or PND. She denies having any syncopal episodes. No headaches, blurring of vision or speech abnormalities. She mentions that she felt the same way when she had heart attack in the past. Patient has history of smoking she smokes 1 pack a day. In the emergency room patient had a chest x-ray showing COPD and an EKG with normal sinus rhythm. She also had troponins checked, level is less than 0.012. Patient has CKD her creatinine is 1.34. Patient has been admitted for further evaluation and management. Hospital course - patient had serial troponins and EKGs that are within normal limits. D-dimer 0.41. Cardiology has evaluated the patient. Patient had a stress test done recently couple of months back, but has been negative so she was cleared by cardiology to be discharged home today. No changes in medications were made. Patient is completely asymptomatic and back to her baseline is straight to go home. Patient is being discharged home in a stable condition. Vital Signs - 8 hr 09/24/19 09/24/19 09/24/19 07:55 08:00 12:00 Temperature 97.3 F L Pulse Rate [ 69 Left Sitting Pulse Oximetery ] Pulse Rate [ 77 Right Supine Radial] Respiratory 20 20 Rate Blood Pressure 145/81 169/73 [Right Arm Supine] O2 Sat by Pulse 94 L 92 L 95 Oximetry GEN. APPEARANCE: alert, in no apparent distress HEENT - no pallor, no icterus , No JVD. RESPIRATORY EXAM: Decreased BS in all lung feliz. Few scattered ronchi. CARDIOVASCULAR EXAM: regular rate, normal rhythm, normal heart sounds. GI/ABDOMINAL EXAM: soft, normal bowel sounds. no tenderness, guarding, rebound or rigidity EXTREMITIES EXAM: no pedal edema NEUROLOGICAL EXAM: alert, oriented X3, no focal deficit PSYCHIATRIC EXAM: normal affect, normal mood SKIN EXAM: warm, dry, intact, normal color. Laboratory Results - Last 24 Hours 09/23/19 09/23/19 09/23/19 09:50 15:58 21:21 WBC RBC Hgb Hct MCV MCH MCHC RDW Plt Count Neutrophils % Lymphocytes % Monocytes % Eosinophils % Basophils % Neutrophils # Lymphocytes # Monocytes # Eosinophils # Basophils # D-Dimer Sodium Potassium Chloride Carbon Dioxide Anion Gap BUN Creatinine Est GFR (CKD-EPI)AfAm Est GFR (CKD-EPI)NonAf Glucose Calcium Troponin I <0.012 <0.012 Triglycerides 158 H Cholesterol 174 LDL Cholesterol, Calc 95 HDL Cholesterol 47 09/23/19 09/24/19 09/24/19 23:07 04:55 04:55 WBC 6.8 RBC 4.15 Hgb 13.5 Hct 39.2 MCV 94.5 MCH 32.6 MCHC 34.5 RDW 13.3 Plt Count 204 Neutrophils % 69 Lymphocytes % 23 Monocytes % 5 Eosinophils % 2 Basophils % 0 Neutrophils # 4.7 Lymphocytes # 1.6 Monocytes # 0.3 Eosinophils # 0.1 Basophils # 0.0 D-Dimer 0.41 Sodium 138 Potassium 4.2 Chloride 110 H Carbon Dioxide 26 Anion Gap 2 BUN 20 H Creatinine 1.16 H Est GFR (CKD-EPI)AfAm 53 Est GFR (CKD-EPI)NonAf 46 Glucose 96 Calcium 8.5 Troponin I Triglycerides Cholesterol LDL Cholesterol, Calc HDL Cholesterol DISCHARGE DIAGNOSIS Chest pain COPD CKD stage 3 Hypertension Hyperlipidemia Coronary artery disease status post stenting Hypothyroidism Left breast lump removal History of anxiety Nicotine dependence PLAN: Patient is asymptomatic currently and a recent stress test was negative and ACS was ruled out, she is being discharged home in a stable condition. She is advised to follow up with her PCP within 5 days. Patient Condition at Discharge: Fair Plan - Discharge Summary Discharge Rx Participant: No New Discharge Prescriptions: Continue [place]/D3/Mag11/Zinc/Warehouse Puller/Reji/Bor [Caltrate 600+D Plus Tablet] 1 tab PO DAILY@1200 Levothyroxine Sodium [Synthroid] 100 mcg PO DAILY@0700 Aspirin 81 mg PO DAILY Atorvastatin Calcium [Lipitor] 20 mg PO DAILY@0800 Multivit with Calcium,Iron,Min [Women's Multivitamin] 1 tab PO DAILY@1200 Discharge Medication List Aspirin 81 mg PO DAILY 06/08/18 [History] Atorvastatin Calcium [Lipitor] 20 mg PO DAILY@0800 06/08/18 [History] [place]/D3/Mag11/Zinc/Warehouse Puller/Reji/Bor [Caltrate 600+D Plus Tablet] 1 tab PO DAILY@1200 06/08/18 [History] Levothyroxine Sodium [Synthroid] 100 mcg PO DAILY@0700 06/08/18 [History] Multivit with Calcium,Iron,Min [Women's Multivitamin] 1 tab PO DAILY@1200 06/08/18 [History] Follow up Appointment(s)/Referral(s): Tristen Retana MD [STAFF PHYSICIAN] - 10/18/19 11:00 am ( -previously scheduled appointment) Bessy Grimes MD [Primary Care Provider] - 09/27/19 11:30 am ( -please arrive 15mins early) Patient Instructions/Handouts: Chest Pain (DC), How to Stop Smoking (DC) Discharge Disposition: HOME SELF-CARE
== END 2019-09-24 17:22 | disposition home or self-care (01) ==
LOC: EC 09:18 → 3SCARD 11:23
PROVIDERS: ADMIT Internal Medicine; ATTEND Internal Medicine
DX: R07.89 Other chest pain (principal); R42 Dizziness and giddiness; E86.0 Dehydration; I25.2 Old myocardial infarction; I12.9 Hypertensive chronic kidney disease with stage 1 through stage 4 chronic kidney disease, or unspecified chronic kidney disease; N18.3 Chronic kidney disease, stage 3 (moderate); J44.9 Chronic obstructive pulmonary disease, unspecified; I25.10 Atherosclerotic heart disease of native coronary artery without angina pectoris; F17.210 Nicotine dependence, cigarettes, uncomplicated; E78.5 Hyperlipidemia, unspecified; N28.9 Disorder of kidney and ureter, unspecified; F41.9 Anxiety disorder, unspecified; E66.9 Obesity, unspecified; Z68.25 Body mass index [BMI] 25.0-25.9, adult; E03.9 Hypothyroidism, unspecified; Z79.82 Long term (current) use of aspirin; Z79.899 Other long term (current) drug therapy; Z79.890 Hormone replacement therapy; Z95.5 Presence of coronary angioplasty implant and graft; Z80.9 Family history of malignant neoplasm, unspecified
CPT/HCPCS: 96361 ×3; 96372; 93005 ×2; 96360; 99284; 36415; 94760; 85379; 80061; 80053; 80048; 83735; 84484; 85025 ×2; 85610; 85730; 71046; G0378 ×2; J1650

== ENCOUNTER 2025-03-19 11:35 | Emergency (ER) | payer MEDICARE, BC ==
[2025-03-19 11:42] VITALS: RESP 18; TEMP 98.4
[2025-03-19] MEDS: LACTATED RINGERS 1,000 ML IV ONE (12:57)
[2025-03-19] MEDS: ONDANSETRON 4 MG/2 ML VIAL IVP STA (12:58)
--- NOTE | 2025-03-19 12:59 | ED ---
General Adult HPI - General Chief complaint: Nausea/Vomiting/Diarrhea Stated complaint: Weakness Time Seen by Provider: 03/19/25 12:00 Source: patient, RN notes reviewed, old records reviewed Mode of arrival: ambulatory Limitations: no limitations - History of Present Illness Initial comments: Patient is an 85-year-old female presents emergency department complaining of nausea with 1 episode of vomiting today. Has a history of cervical spine stenosis, and has noticed progressively for the last weeks to months she has had decreased oral intake. Unknown if this is related to more of a upset stomach from her chronic medications but she is not drinking or eating as much as she used to. Endorses occasional generalized weakness. Denies any fevers or chills. Denies chest pain, abdominal pain, nausea, vomiting. States she feels fine but has noticed decreased oral intake. Unknown if it is secondary to difficulty with swallowing or just no appetite. Presents for further evaluation at this time.Patient apparently also has an possibly an aspiration event as she had a productive cough yesterday and this morning. - Related Data Home Medications Medication Instructions Recorded Confirmed Aspirin 81 mg PO DAILY 06/08/18 09/23/19 Atorvastatin Calcium [Lipitor] 20 mg PO DAILY@0800 06/08/18 09/23/19 [place]/D3/Mag11/Zinc/Aggregate Conveyor Operator/Reji/Bor 1 tab PO DAILY@1200 06/08/18 09/23/19 [Caltrate 600+D Plus Tablet] Levothyroxine Sodium [Synthroid] 100 mcg PO DAILY@0700 06/08/18 09/23/19 Multivit with Calcium,Iron,Min 1 tab PO DAILY@1200 06/08/18 09/23/19 [Women's Multivitamin] Previous Rx's Medication Instructions Recorded Azithromycin [Zithromax] 250 mg PO DAILY 4 Days #4 tab 03/19/25 Allergies Allergy/AdvReac Type Severity Reaction Status Date / Time No Known Allergies Allergy Verified 03/19/25 11:42 Review of Systems ROS Statement: Those systems with pertinent positive or pertinent negative responses have been documented in the HPI. Review of Systems: CONST: Denies fever EYES: Denies blurry vision ENT: Denies nasal congestion C/V: Denies Chest pain RESP: Denies shortness of breath GI: Endorses nausea and vomiting : Denies dysuria SKIN: Denies rash. MSK: Denies joint pain. NEURO: Endorses weakness ROS Other: All systems not noted in ROS Statement are negative. Past Medical History Past Medical History: Chest Pain / Angina, COPD, Hyperlipidemia, Hypertension, Myocardial Infarction (CT), Renal Disease, Thyroid Disorder Additional Past Medical History / Comment(s): HEART CATH 06/15/18 - STATES PUNTURE SITE HAS NO SWELLING OR BLEEDING., RENAL INSUFFICIENCY., SEE CARDIOLOGY H & P. Last Myocardial Infarction Date:: 2004 History of Any Multi-Drug Resistant Organisms: None Reported Past Surgical History: Breast Surgery, Heart Catheterization With Stent Additional Past Surgical History / Comment(s): heart stent x1,lump removed left breast Past Anesthesia/Blood Transfusion Reactions: No Reported Reaction Additional Past Anesthesia/Blood Transfusion Reaction / Comment(s): no hx blood transfusion Date of Last Stent Placement:: 2004 Past Psychological History: Anxiety Past Alcohol Use History: Occasional Past Drug Use History: None Reported - Past Family History Sister(s) Family Medical History: Cancer Brother(s) Family Medical History: Cancer General Exam - General Exam Comments Initial Comments: General: Appears in no acute distress. HEAD: Normal with no signs of head trauma. EYES: PERRLA, EOMI, conjunctiva normal, no discharge. ENT: Hearing grossly intact, normal oropharynx. Dry mucous membranes. Appears clinically dehydrated. RESPIRATORY: Clear breath sounds bilaterally. No wheezes, rales, or rhonchi. C/V: Regular rate and rhythm. S1 and S2 auscultated, no edema, peripheral pulses 2+ and intact throughout ABD: Abd is soft, nontender, nondistended EXT: Normal range of motion, no obvious deformity SKIN: No rashes or lesions observed on exposed skin. NEURO: Alert and oriented x 4. No obvious focal deficits. Limitations: no limitations Course Vital Signs 03/19/25 03/19/25 11:39 14:10 Temperature 98.4 F Pulse Rate 88 66 Respiratory 18 18 Rate Blood Pressure 138/64 124/64 O2 Sat by Pulse 95 96 Oximetry Medical Decision Making - Medical Decision Making Was pt. sent in by a medical professional or institution (, PA, ACCOUNT COORDINATOR, urgent care, hospital, or usp...) When possible be specific @ -No Did you speak to anyone other than the patient for history (EMS, parent, family, police, friend...)? What history was obtained from this source @ -Discussed with daughter who assisted with the PMH Did you review nursing and triage notes (agree or disagree)? Why? @ -I reviewed and agree with nursing and triage notes Were old charts reviewed (outside hosp., previous admission, EMS record, old EKG, old radiological studies, urgent care reports/EKG's, usp records)? Report findings @ -No old charts were reviewed Differential Diagnosis (chest pain, altered mental status, abdominal pain women, abdominal pain men, vaginal bleeding, weakness, fever, dyspnea, syncope, headache, dizziness, GI bleed, back pain, seizure, CVA, palpatations, mental health, musculoskeletal)? @ -Dehydration, electrolyte abnormality, decreased appetite, infection. This list is not all inclusive. EKG interpreted by me (3pts min.). @ -As above X-rays interpreted by me (1pt min.). @ -Chest x-ray reveals possible pneumonia which does fit as patient has had an episode of aspiration and did have some productive cough this morning. CT interpreted by me (1pt min.). @ -None done U/S interpreted by me (1pt. min.). @ -None done What testing was considered but not performed or refused? (CT, X-rays, U/S, labs)? Why? @ -None What meds were considered but not given or refused? Why? @ -None Did you discuss the management of the patient with other professionals (professionals i.e. , PA, ACCOUNT COORDINATOR, lab, RT, psych nurse, child welfare social worker, mobile ui/ux designer, teacher, marketing and communications officer, director of casework department)? Give summary @ -No Was smoking cessation discussed for >3mins.? @ -No Was critical care preformed (if so, how long)? @ -No Were there social determinants of health that impacted care today? How? (Homelessness, low income, unemployed, alcoholism, drug addiction, transportation, low edu. Level, literacy, decrease access to med. care, long term, rehab)? @ -No Was there de-escalation of care discussed even if they declined (Discuss DNR or withdrawal of care, Hospice)? DNR status @ -No What co-morbidities impacted this encounter? (DM, HTN, Smoking, COPD, CAD, Cancer, CVA, ARF, Chemo, Hep., AIDS, mental health diagnosis, sleep apnea, morbid obesity)? @ -None Was patient admitted / discharged? Hospital course, mention meds given and route, prescriptions, significant lab abnormalities, going to OR and other pertinent info. @ -Patient presents with decreased appetite as well as decreased oral intake ongoing for weeks. Could be related to medications. Clinically appears mildly dehydrated. She will receive IV fluids, Zofran and we will obtain basic labs as well as chest x-ray and EKG. She was in agreement this plan. Vitals are within acceptable limits. Does believe she may have had an aspiration event yesterday or this morning resulting in a mildly productive cough. Laboratory studies are all within acceptable limits except for mild leukocytosis of 13 however hemoglobin is also elevated I do suspect this is likely secondary to mild dehydration. Electrolytes are within normal limits. Thyroid function within normal limits. Urinalysis unremarkable. Chest x-ray shows possible pneumonia on the left. This is likely the aspiration event she discussed. EKG unremarkable. On reevaluation, patient resting comfortably. We did discuss her workup. She will attempt to decrease her dosing of gabapentin at home and I will place her on azithromycin at this time. She was in agreement this plan. Close follow-up with Dr. Grimes. She may require swallow studies. Strict return precautions discussed. Patient's daughter and patient were in agreement this plan. I will provide the patient with a prescription for azithromycin. I instructed the patient to follow up with their PCP in the next 1-3 days.. I explained that the patient should return to the emergency department if they experience any worsening symptoms. Strict return precautions were discussed with the patient. The patient expressed understanding of these instructions. I answered all questions that the patient had. The patient was discharged home in good con dition with their prescriptions and follow up information. Undiagnosed new problem with uncertain prognosis? @ -No Drug Therapy requiring intensive monitoring for toxicity (Heparin, Nitro, Insulin, Cardizem)? @ -No Were any procedures done? @ -No Diagnosis/symptom? @ -Pneumonia, dehydration Acute, or Chronic, or Acute on Chronic? @ -Acute Uncomplicated (without systemic symptoms) or Complicated (systemic symptoms)? @ -Uncomplicated Side effects of treatment? @ -No Exacerbation, Progression, or Severe Exacerbation? @ -No Poses a threat to life or bodily function? How? (Chest pain, USA, CT, pneumonia, PE, COPD, DKA, ARF, appy, cholecystitis, CVA, Diverticulitis, Homicidal, Suicidal, threat to staff... and all critical care pts) @ -Unlikely at this time - Lab Data Result diagrams: 03/19/25 12:53 03/19/25 12:53 Lab Results 03/19/25 03/19/25 03/19/25 Range/Units 12:53 12:53 12:53 WBC 13.77 H (4.50-10.00) 10*3/uL RBC 4.70 (4.10-5.20) 10*6/uL Hgb 15.2 H (12.0-15.0) g/dL Hct 44.1 (37.2-46.3) % MCV 93.8 (80.0-97.0) fL MCH 32.3 H (27.0-32.0) pg MCHC 34.5 (32.0-37.0) g/dL Plt Count 300 (140-440) 10*3/uL MPV 8.8 L (9.5-12.2) fL Immature Gran % (Auto) 0.4 % Neutrophils % 83.1 % Lymphocytes % 9.7 % Monocytes % 6.5 % Eosinophils % 0.1 % Basophils % 0.2 % Immature Gran # 0.06 H (0.00-0.04) 10*3/uL Neutrophils # 11.44 H (1.80-7.70) 10*3/uL Lymphocytes # 1.33 (0.90-5.00) 10*3/uL Monocytes # 0.90 (0.20-1.00) 10*3/uL Eosinophils # 0.01 L (0.04-0.35) 10*3/uL Basophils # 0.03 (0.00-0.10) 10*3/uL PT 10.2 (10.0-12.5) sec INR 0.9 (<1.2) APTT 20.1 L (22.0-30.0) sec Sodium (137-145) mmol/L Potassium (3.5-5.1) mmol/L Chloride (98-107) mmol/L Carbon Dioxide (22-30) mmol/L Anion Gap mmol/L BUN (7-17) mg/dL Creatinine (0.52-1.04) mg/dL Est GFR (CKD-EPI)AfAm (>60 ml/min/1.73 sqM) Est GFR (CKD-EPI)NonAf (>60 ml/min/1.73 sqM) Glucose (74-99) mg/dL Plasma Lactic Acid Jeff (0.7-2.0) mmol/L Calcium (8.4-10.2) mg/dL Magnesium (1.6-2.3) mg/dL Total Bilirubin (0.2-1.3) mg/dL AST (14-36) U/L ALT (4-34) U/L Alkaline Phosphatase (38-126) U/L Total Protein (6.3-8.2) g/dL Albumin (3.5-5.0) g/dL TSH (0.465-4.680) mIU/L Urine Color Light Yellow Urine Appearance Clear (Clear) Urine pH 5.5 (5.0-8.0) Ur Specific Alloy 1.021 (1.001-1.035) Urine Protein Negative (Negative) Urine Glucose (UA) Negative (Negative) Urine Ketones 1+ H (Negative) Urine Blood Trace H (Negative) Urine Nitrite Negative (Negative) Urine Bilirubin Negative (Negative) Urine Urobilinogen <2.0 (<2.0) mg/dL Ur Leukocyte Esterase Negative (Negative) Urine RBC 1 (0-5) /hpf Urine WBC 2 (0-5) /hpf Ur Squamous Epith Cells 1 (0-4) /hpf Hyaline Casts 3 H (0-2) /lpf Urine Mucus Rare H (None) /hpf 03/19/25 03/19/25 Range/Units 12:53 12:53 WBC (4.50-10.00) 10*3/uL RBC (4.10-5.20) 10*6/uL Hgb (12.0-15.0) g/dL Hct (37.2-46.3) % MCV (80.0-97.0) fL MCH (27.0-32.0) pg MCHC (32.0-37.0) g/dL Plt Count (140-440) 10*3/uL MPV (9.5-12.2) fL Immature Gran % (Auto) % Neutrophils % % Lymphocytes % % Monocytes % % Eosinophils % % Basophils % % Immature Gran # (0.00-0.04) 10*3/uL Neutrophils # (1.80-7.70) 10*3/uL Lymphocytes # (0.90-5.00) 10*3/uL Monocytes # (0.20-1.00) 10*3/uL Eosinophils # (0.04-0.35) 10*3/uL Basophils # (0.00-0.10) 10*3/uL PT (10.0-12.5) sec INR (<1.2) APTT (22.0-30.0) sec Sodium 134 L (137-145) mmol/L Potassium 4.8 (3.5-5.1) mmol/L Chloride 103 (98-107) mmol/L Carbon Dioxide 23 (22-30) mmol/L Anion Gap 8 mmol/L BUN 26 H (7-17) mg/dL Creatinine 1.03 (0.52-1.04) mg/dL Est GFR (CKD-EPI)AfAm 58 (>60 ml/min/1.73 sqM) Est GFR (CKD-EPI)NonAf 50 (>60 ml/min/1.73 sqM) Glucose 96 (74-99) mg/dL Plasma Lactic Acid Jeff 1.2 (0.7-2.0) mmol/L Calcium 10.0 (8.4-10.2) mg/dL Magnesium 2.1 (1.6-2.3) mg/dL Total Bilirubin 0.8 (0.2-1.3) mg/dL AST 27 (14-36) U/L ALT 16 (4-34) U/L Alkaline Phosphatase 73 (38-126) U/L Total Protein 6.9 (6.3-8.2) g/dL Albumin 4.1 (3.5-5.0) g/dL TSH 0.647 (0.465-4.680) mIU/L Urine Color Urine Appearance (Clear) Urine pH (5.0-8.0) Ur Specific Alloy (1.001-1.035) Urine Protein (Negative) Urine Glucose (UA) (Negative) Urine Ketones (Negative) Urine Blood (Negative) Urine Nitrite (Negative) Urine Bilirubin (Negative) Urine Urobilinogen (<2.0) mg/dL Ur Leukocyte Esterase (Negative) Urine RBC (0-5) /hpf Urine WBC (0-5) /hpf Ur Squamous Epith Cells (0-4) /hpf Hyaline Casts (0-2) /lpf Urine Mucus (None) /hpf - EKG Data -: EKG Interpreted by Me EKG Comments: 12-lead Electrocardiogram Interpretation Note EKG was reviewed and interpreted by myself. 12-lead ECG performed at 1234 is interpreted by me as revealing normal sinus rhythm at a rate of 71 beats per minute. [place] is normal. DE interval is 156 ms, QRS duration is 82 ms, QTc is currently 93 ms.. There were no ST or T wave abnormalities to suggest my ocardial ischemia or injury. R wave progression across the precordium was satisfactory. By my interpretation this EKG is non-diagnostic for acute ischemia. Disposition Clinical Impression: Dehydration, Pneumonia Disposition: HOME SELF-CARE Condition: Good Instructions (If sedation given, give patient instructions): Dehydration (ED), Community Acquired Pneumonia (ED) Prescriptions: Azithromycin [Zithromax] 250 mg PO DAILY 4 Days #4 tab Is patient prescribed a controlled substance at d/c from ED?: No Referrals: Bessy Grimes MD [Primary Care Provider] - 1-2 days Time of Disposition: 14:40
[2025-03-19 13:05] LABS: Basophils # (A) 0.03 10*3/uL (0.00-0.10); Basophils % (A) 0.2 %; Eosinophils # (A) 0.01 10*3/uL (0.04-0.35); Eosinophils % (A) 0.1 %; HCT 44.1 % (37.2-46.3); HGB 15.2 g/dL (12.0-15.0); Lymphocytes # (A) 1.33 10*3/uL (0.90-5.00); Lymphocytes % (A) 9.7 %; MCH 32.3 pg (27.0-32.0); MCHC 34.5 g/dL (32.0-37.0); MCV 93.8 fL (80.0-97.0); Mean Platelet Volume 8.8 fL (9.5-12.2); Monocytes % (A) 6.5 %; Neutrophils # (A) 11.44 10*3/uL (1.80-7.70); Neutrophils % (A) 83.1 %; Platelet Count 300 10*3/uL (140-440); RDW 14.5 % (11.5-14.5); WBC 13.77 10*3/uL (4.50-10.00)
[2025-03-19 13:09] LABS: Appearance,Urine Clear (Clear); Bilirubin,Urine Negative (Negative); Blood,Urine Trace (Negative); Color,Urine Light Yellow; Glucose,Urine (UA) Negative (Negative); Hyaline Casts,Urine 3 /lpf (0-2); Ketones,Urine 1+ (Negative); Leukocyte Esterase,Urine Negative (Negative); Mucus,Urine Rare /hpf; Nitrite,Urine Negative (Negative); PH, Urine 5.5 (5.0-8.0); Protein,Urine Negative (Negative); RBC,Urine 1 /hpf (0-5); Specific Gravity,Urine 1.021 (1.001-1.035); Squamous Epithelial Cell,Urine 1 /hpf (0-4); Urobilinogen,Urine <2.0 mg/dL (<2.0); WBC,Urine 2 /hpf (0-5)
[2025-03-19 13:21] LABS: INR 0.9 (<1.2); Partial Thromboplastin Time 20.1 sec (22.0-30.0); Prothrombin Time 10.2 sec (10.0-12.5)
[2025-03-19 13:22] LABS: ALT 16 U/L (4-34); African American GFR (CKD) 58 (>60 ml/min/1.73 sqM); Albumin 4.1 g/dL (3.5-5.0); Anion Gap 8 mmol/L; Blood Urea Nitrogen 26 mg/dL (7-17); Carbon Dioxide 23 mmol/L (22-30); Chloride 103 mmol/L (98-107); Glucose 96 mg/dL (74-99); Non-African American GFR(CKD) 50 (>60 ml/min/1.73 sqM); Sodium 134 mmol/L (137-145); Total Bilirubin 0.8 mg/dL (0.2-1.3); Total Protein 6.9 g/dL (6.3-8.2)
--- NOTE | 2025-03-19 13:40 | XR ---
EXAMINATION TYPE: XR chest 2V DATE OF EXAM: 03/19/2025 1:24 PM COMPARISON: 09/23/2019 CLINICAL INDICATION: Female, 85 years old with history of Weakness, , TECHNIQUE: AP and lateral views FINDINGS: Heart borderline in size. Hyperinflation. Focal anterior left midlung/perihilar opacity. Hyperinflati on. No other consolidation or pleural effusion. IMPRESSION: COPD with new left-sided, anterior/perihilar opacity. Correlate for pneumonia. If typical clinical si gns/symptoms of pneumonia, recommend follow-up in 3-4 weeks to ensure clearance. If atypical signs/sy mptoms, CT may be indicated. [facility], , 03/19/2025 1:38 PM
[2025-03-19 14:11] VITALS: BP 124/64; PULSE 66
[2025-03-19 14:15] LABS: AST 27 U/L (14-36); Alkaline Phosphatase 73 U/L (38-126); Magnesium 2.1 mg/dL (1.6-2.3); Potassium 4.8 mmol/L (3.5-5.1)
[2025-03-19] MEDS: AZITHROMYCIN 500 MG TAB PO STA (14:51)
[2025-03-19] MEDS: cefTRIAXone IN SWFI 1,000 MG/10 ML SYRINGE IVP STA (14:51)
[2025-03-19 23:02] LABS: Chol/HDL Ratio 4.16 Ratio; LDL Cholesterol,Calculated 119.1 mg/dL (0.0-131.0)
== END 2025-03-19 15:20 | disposition home or self-care (01) ==
LOC: EC 11:35
DX: J18.9 Pneumonia, unspecified organism (principal); E86.0 Dehydration; Z79.82 Long term (current) use of aspirin
CPT/HCPCS: 36415; 93005; 80061; 80053; 83605; 83735; 84443; 85025; 85610; 85730; 81001; 71046; 99284; 96374; 96375; 96361; J2405; J0696

== ENCOUNTER → 2025-03-25 | Outpatient (CLI) | payer MEDICARE, BC ==
--- NOTE | 2025-03-25 11:09 | XR ---
EXAMINATION TYPE: XR chest 2V DATE OF EXAM: 03/25/2025 CLINICAL INDICATION: Female, 85 years old with history of J18.9 PNEUMONIA, UNSPECIFIED ORGANISM, TECHNIQUE: Frontal and lateral views of the chest are obtained. COMPARISON: Chest x-ray 6 days ago FINDINGS: Underlying emphysematous change bilaterally is redemonstrated. Persistent left hilar massl celia opacity. There is no suspicious new focal air space opacity, pleural effusion, or pneumothorax se en. The cardiac silhouette size is within normal limits. The osseous structures are intact. IMPRESSION: Chronic emphysematous change with persistent left hilar masslike opacity. Underlying mass /neoplasm not excluded. No new acute pulmonary infiltrate. [facility], , 03/25/2025 11:07 AM
== END | disposition home or self-care (01) ==
LOC: RADXRMAIN 10:53
PROVIDERS: ATTEND Family Medicine
DX: J18.9 Pneumonia, unspecified organism (principal); J43.9 Emphysema, unspecified
CPT/HCPCS: 71046